=== PATIENT | male | born 1995 | race Caucasian/White ===

== ENCOUNTER 2017-01-07 19:44 | Emergency (ER) | payer MEDICAID ==
[2017-01-07 19:55] VITALS: RESP 18
[2017-01-07] MEDS ORDERED: ACETAMINOPHEN 500 MG TAB PO ONE (19:58)
[2017-01-07] MEDS ORDERED: NS 1,000 ML IV ONE ×2 (20:08)
[2017-01-07] MEDS ORDERED: ONDANSETRON 4 MG/2 ML VIAL IVP ONE (20:08)
--- NOTE | 2017-01-07 20:23 | EDPHY ---
H & P Time Seen by Provider: 01/07/17 20:13 HPI/ROS: CHIEF COMPLAINT: Flu-like symptoms. HISTORY OF PRESENT ILLNESS: The patient is a 21 year, who identifies as a female , presenting with flu-like symptoms for the past 3 days. The patient woke up with chills 3 days ago. She has an ongoing cough. She has been vomiting for the past 2 days and states she feels very weak. The patient additionally notes a headache with associated eye pressure. She did not receive a flu shot this season. She took Robitussin and Equate. She denies chest pain or shortness of breath. REVIEW OF SYSTEMS: A comprehensive 10 point review of systems is otherwise negative aside from elements mentioned in the history of present illness. Past Medical/Surgical History: Currently taking Estrogen. Social History: Cigarette smoker. Patient identifies as a female. Smoking Status: Current some day smoker Physical Exam: General Appearance: Alert, pleasant Eyes: Pupils equal and round, no conjunctival pallor or injection ENT, Mouth: Mucous membranes moist Neck: Normal inspection Respiratory: Lungs are clear to auscultation Cardiovascular: Regular rate and rhythm Gastrointestinal: Abdomen is soft and non-tender Neurological: A&O, nonfocal, normal gait Skin: Warm and dry, no rash Extremities: Nontender, no pedal edema Psychiatric: Mood and affect normal Constitutional: Initial Vital Signs Temperature (C) 39.2 C H 01/07/17 19:52 Heart Rate 133 H 01/07/17 19:52 Respiratory Rate 18 01/07/17 19:52 Blood Pressure 134/76 H 01/07/17 19:52 O2 Sat (%) 98 01/07/17 19:52 O2 Delivery Mode Room Air Allergies/Adverse Reactions: No Known Allergies Allergy (Unverified 01/07/17 19:59) Home Medications: Medication Instructions Recorded Ondansetron Odt [Zofran Odt 4 mg 4 mg PO Q4 PRN #6 tab 01/07/17 (*)] Oseltamivir Phosphate [Tamiflu 75 75 mg PO BID #10 cap 01/07/17 mg (RX)] Medical Decision Making - Diagnostics Imaging: Study: X-ray of the chest was obtained. Results: Negative. I viewed the images myself on the PACS system. ED Course/Re-evaluation: Patient received 1000mg Tylenol PO. Flu swab was sent. IV was established, patient received IV fluids and 4mg Zofran. Chest x-ray is pending. Patient is positive for influenza B. Plan to start the patient on Tamiflu. Chest x-ray is negative. 9:00 p.m.: I discussed findings with the patient. Plan to discharge home. Differential Diagnosis: Differential diagnosis includes pneumonia, pyelonephritis, cholecystitis, influenza, cellulitis, pneumonia, abscess, meningitis. - Data Points Laboratory Results: 01/07/17 20:30 Influenza Typ A,B (DFA) POSITIVE FOR FLU B H (NEGATIVE) Medications Given: Discontinued Medications Acetaminophen (Tylenol) 1,000 mg PO EDNOW ONE Stop: 01/07/17 19:59 Last Admin: 01/07/17 19:58 Dose: 1,000 mg Sodium Chloride (Ns) 1,000 mls @ 0 mls/hr IV ONCE ONE PRN Reason: Wide Open Stop: 01/07/17 20:09 Last Admin: 01/07/17 20:16 Dose: 1,000 mls Sodium Chloride (Ns) 1,000 mls @ 0 mls/hr IV ONCE ONE PRN Reason: Wide Open Stop: 01/07/17 20:09 Last Admin: 01/07/17 20:17 Dose: 1,000 mls Ondansetron HCl (Zofran) 4 mg IVP EDNOW ONE Stop: 01/07/17 20:09 Last Admin: 01/07/17 20:34 Dose: 4 mg Ondansetron HCl (Zofran Odt 4 Mg Prepack#2) 1 btl TAKEHOME EDNOW ONE Stop: 01/07/17 20:58 Last Admin: 01/07/17 21:15 Dose: 1 btl Departure - Departure Disposition: Home, Routine, Self-Care Clinical Impression: Influenza B Condition: Good Instructions: Ondansetron (By mouth), Influenza (ED) Additional Instructions: Drink plenty of fluids. Start Tamiflu and take as directed. Adult Pain & Fever Control: We recommend Acetaminophen (Tylenol) and Ibuprofen (Motrin,Advil) for pain and fever control. When fever is high or pain severe, both drugs can be used at the same time, but at different intervals. Please note the time differences. Your dose is: Acetaminophen 650 mg every 4 to 6 hours Ibuprofen 600 mg every 6-8 hours with food. You have been referred to the on-call primary care physician. If you continue to have symptoms please followup with this physician. Referrals: Abby Doss MD [Medical Doctor] - As per Instructions Stand Alone Forms: School Excuse Prescriptions: Ondansetron Odt [Zofran Odt 4 mg (*)] 4 mg PO Q4 PRN #6 tab PRN Reason: Nausea Oseltamivir Phosphate [Tamiflu 75 mg (RX)] 75 mg PO BID #10 cap Report Scribed for: Allyn Jin Report Scribed by: Dalia Root Date of Report: 01/07/17 Time of Report: 20:23 Physician Review and Approval Statement: 01/07/17 21:01 Portions of this note were transcribed by a medical microbiologist. I personally performed the history, physical exam, and medical decision-making; and confirmed the accuracy of the information in the transcribed note.
[2017-01-07] MEDS ORDERED: ONDANSETRON 4MG PREPACK#2 BTL TAKEHOME ONE (20:57)
[2017-01-07 21:28] VITALS: BP 100/51; PULSE 100; TEMP 100.2; O2SAT 96
== END 2017-01-07 21:27 | disposition home or self-care (01) ==
LOC: EDSEX 19:44 → EEVIPCON 19:44
DX: J10.1 Influenza due to other identified influenza virus with other respiratory manifestations (principal); F17.200 Nicotine dependence, unspecified, uncomplicated
CPT/HCPCS: 96374; J2405

== ENCOUNTER 2017-09-29 12:09 | Emergency (ER) | payer MEDICAID ==
[2017-09-29 12:16] VITALS: RESP 18
[2017-09-29] MEDS ORDERED: IBUPROFEN 600 MG TAB PO ONE (12:16)
[2017-09-29 14:05] VITALS: TEMP 98.8
--- NOTE | 2017-09-29 14:12 | EDPHY ---
HPI/HX/ROS/PE/MDM Narrative: CHIEF COMPLAINT: Fever, flu-like symptoms HISTORY OF PRESENT ILLNESS: This patient is a 22 year old who identifies as female complaining of shortness of breath, back pain, chest pain, nausea, fatigue, and headache onset around 12pm yesterday. Her symptoms have become progressively worse since that time. She endorses productive cough, lightheadedness, and dizziness. She is febrile at triage at 39.2 degrees. She has taken Tylenol and Ibuprofen at home with little relief. Her last dose of acetaminophen at home was around 7:00am. She did not receive a flu shot this year. No palpitations, vomiting, diarrhea, urinary complaints. REVIEW OF SYSTEMS: Aside from elements discussed in the HPI, a comprehensive 10-point review of systems was reviewed and is negative. PAST MEDICAL HISTORY: 1. Transitioning male to female. (Spironolactone, Estrogen) SOCIAL HISTORY: Single. Lives in [place]. Nonsmoker. VITAL SIGNS: Reviewed by me GENERAL: Well-developed, well-nourished, resting comfortably in no respiratory distress. Occasional cough. HEENT: Atraumatic. Eyes: No icterus, no injection. Mouth: slightly dry mucous membranes, mild erythema, no exudates or lesions. Neck: supple with no adenopathy. LUNGS: Clear to auscultation bilaterally, no wheezes, rhonchi or rales. CARDIAC: Regular tachycardia, no rubs, murmurs or gallops. ABDOMEN: Soft, nontender, nondistended, bowel sounds normal. BACK: No CVA tenderness. EXTREMITIES: No trauma. No edema. Range of motion is normal throughout. NEURO: Alert and oriented, grossly nonfocal. SKIN: Warm and diaphoretic, no rash. PSYCHIATRIC: Normal mentation, no agitation. Portions of this note were transcribed by a medical records supervisor. I personally performed a history, physical exam, medical decision making, and confirmed accuracy of information the transcribed note. ED Course: IV placed. Patient given motrin at triage. CXR without pneumonia; c/w bronchitis. Labs largely reassuring. Influenza swab sent; suspect influenza A. Better post fluids. No longer febrile. Tachycardia improved. Patient dc'd with tamiflu. Will call ED for results of influenza swab. MDM: Differential diagnosis for fever in adults was considered including but not limited to pneumonia, bronchitis, urinary tract infection, viral syndrome, and influenza. - Data Points Imaging Results: Imaging Impressions Chest X-Ray 09/29/17 14:12 Impression: Mild perihilar bronchitis, with no focal infiltrate. Imaging: I viewed and interpreted images myself Laboratory Results: Laboratory Results 09/29/17 14:45 09/29/17 14:45 09/29/17 09/29/17 09/29/17 15:48 14:45 14:45 WBC 6.18 10^3/uL 10^3/uL (3.80-9.50) RBC 5.04 10^6/uL 10^6/uL (4.40-6.38) Hgb 14.3 g/dL g/dL (13.7-17.5) Hct 42.7 % % (40.0-51.0) MCV 84.7 fL fL (81.5-99.8) MCH 28.4 pg pg (27.9-34.1) MCHC 33.5 g/dL g/dL (32.4-36.7) RDW 13.7 % % (11.5-15.2) Plt Count 202 10^3/uL 10^3/uL (150-400) MPV 9.4 fL fL (8.7-11.7) Neut % (Auto) 77.7 % H % (39.3-74.2) Lymph % (Auto) 11.5 % L % (15.0-45.0) Catron % (Auto) 9.1 % % (4.5-13.0) Eos % (Auto) 0.3 % L % (0.6-7.6) Baso % (Auto) 0.6 % % (0.3-1.7) Nucleat RBC Rel Count 0.0 % % (0.0-0.2) Absolute Neuts (auto) 4.80 10^3/uL 10^3/uL (1.70-6.50) Absolute Lymphs (auto) 0.71 10^3/uL L 10^3/uL (1.00-3.00) Absolute Monos (auto) 0.56 10^3/uL 10^3/uL (0.30-0.80) Absolute Eos (auto) 0.02 10^3/uL L 10^3/uL (0.03-0.40) Absolute Basos (auto) 0.04 10^3/uL 10^3/uL (0.02-0.10) Absolute Nucleated RBC 0.00 10^3/uL 10^3/uL (0-0.01) Immature Gran % 0.8 % % (0.0-1.1) Immature Gran # 0.05 10^3/uL 10^3/uL (0.00-0.10) Sodium 137 mEq/L mEq/L (134-144) Potassium 3.5 mEq/L mEq/L (3.5-5.2) Chloride 103 mEq/L mEq/L (97-110) Carbon Dioxide 21 mEq/l L mEq/l (22-31) Anion Gap 13 mEq/L mEq/L (8-16) BUN 12 mg/dL mg/dL (7-23) Creatinine 0.9 mg/dL mg/dL (0.7-1.3) Estimated GFR > 60 Glucose 91 mg/dL mg/dL (70-100) Calcium 9.3 mg/dL mg/dL (8.5-10.4) Nasal Influenza A PCR FLU A DETECTED H (NEGATIVE) Nasal Influenza B PCR NEGATIVE FOR FLU B (NEGATIVE) Medications Given: Discontinued Medications Sodium Chloride (Ns) 1,000 mls @ 0 mls/hr IV ONCE ONE; Wide Open PRN Reason: Protocol Stop: 09/29/17 14:26 Last Admin: 09/29/17 14:55 Dose: 1,000 mls Ibuprofen (Motrin) 600 mg PO EDNOW ONE Stop: 09/29/17 12:17 Last Admin: 09/29/17 12:19 Dose: 600 mg Ketorolac Tromethamine (Toradol) 30 mg IVP EDNOW ONE Stop: 09/29/17 14:27 Last Admin: 09/29/17 14:50 Dose: Not Given General Time Seen by Provider: 09/29/17 14:09 Initial Vital Signs: Initial Vital Signs Temperature (C) 39.2 C H 09/29/17 12:13 Heart Rate 118 H 09/29/17 12:13 Respiratory Rate 18 09/29/17 12:13 Blood Pressure 116/82 H 09/29/17 12:13 O2 Sat (%) 96 09/29/17 12:13 O2 Delivery Mode Room Air Allergies/Adverse Reactions: No Known Allergies Allergy (Verified 09/29/17 12:12) Home Medications: Medication Instructions Recorded Estrogens, Conjugated 09/29/17 Oseltamivir Phosphate [Tamiflu 75 75 mg PO BID 5 Days cap 09/29/17 mg (*)] Spironolactone 09/29/17 Departure - Departure Disposition: Home, Routine, Self-Care Clinical Impression: Influenza Condition: Good Instructions: Oseltamivir (By mouth), Fever in Adults (ED), Influenza (ED) Additional Instructions: 1. Take Tylenol or ibuprofen as directed below for pain/fever reduction. 2. Follow up with your primary care provider for further evaluation. 3. Return to the emergency department for uncontrollable fever, worsening chest pain or shortness of breath, uncontrollable vomiting or diarrhea, or other worsening of condition. 4. Stay well hydrated. Adult Pain & Fever Control: We recommend Acetaminophen (Tylenol) and Ibuprofen (Motrin,Advil) for pain and fever control. When fever is high or pain severe, both drugs can be used at the same time, but at different intervals. Please note the time differences. Your dose is: Acetaminophen 650mg every 4 to 6 hours Ibuprofen 400mg every 6-8 hours with food Note: do not take Acetaminophen with Hydrocodone (Vicodin, Lortab) or Oxycodone (Percocet). These medications also contain Acetaminophen. No more than 3000mg of Acetaminophen should be taken in 24 hours (for an adult). 5. Take tamiflu as directedd. Referrals: Vibha Del Cid MD [Medical Doctor] - As per Instructions Stand Alone Forms: School Excuse Prescriptions: Oseltamivir Phosphate [Tamiflu 75 mg (*)] 75 mg PO BID 5 Days cap Report Scribed for: Gwen Rivas Report Scribed by: Tuyet Louis Date of Report: 09/29/17 Time of Report: 14:12
[2017-09-29] MEDS ORDERED: NS 1,000 ML IV ONE (14:25)
[2017-09-29] MEDS ORDERED: KETOROLAC 30 MG/1 ML SDV IVP ONE (14:26)
[2017-09-29 15:03] LABS: % IMMATURE GRANULYOCYTES 0.8 % (0.0-1.1); ABSOLUTE IMMATURE GRANULOCYTES 0.05 10^3/uL (0.00-0.10); ADD DIFF? NO; ADD MORPH? NO; ADD SCAN? NO; ATYPICAL LYMPHOCYTE FLAG 0 (0-99); FRAGMENT RBC FLAG 0 (0-99); HEMATOCRIT 42.7 % (40.0-51.0); HEMOGLOBIN 14.3 g/dL (13.7-17.5); LEFT SHIFT FLG 0 (0-99); LIPEMIA HEMOLYSIS FLAG 80 (0-99); MEAN CELL HEMOGLOBIN 28.4 pg (27.9-34.1); MEAN CELL HEMOGLOBIN CONCENTR. 33.5 g/dL (32.4-36.7); MEAN CELL VOLUME 84.7 fL (81.5-99.8); MEAN PLATELET VOLUME 9.4 fL (8.7-11.7); PLATELET CLUMPS FLAG 40 (0-99); PLATELET COUNT 202 10^3/uL (150-400); RED BLOOD CELL COUNT 5.04 10^6/uL (4.40-6.38); RED CELL DISTRIBUTION WIDTH 13.7 % (11.5-15.2)
[2017-09-29 15:07] LABS: ANION GAP 13 mEq/L (8-16); CALCIUM 9.3 mg/dL (8.5-10.4); CARBON DIOXIDE 21 mEq/l (22-31); CHLORIDE 103 mEq/L (97-110); CREATININE 0.9 mg/dL (0.7-1.3); GLOMERULAR FILTRATION RATE > 60; GLUCOSE 91 mg/dL (70-100); POTASSIUM 3.5 mEq/L (3.5-5.2); SODIUM 137 mEq/L (134-144)
[2017-09-29 15:13] VITALS: O2SAT 96
[2017-09-29 15:47] VITALS: BP 114/79; PULSE 93
[2017-09-29 16:43] LABS: PRINT OR CALL CRITICALS TECH CALL
== END 2017-09-29 15:55 | disposition home or self-care (01) ==
DX: J11.1 Influenza due to unidentified influenza virus with other respiratory manifestations (principal); E86.9 Volume depletion, unspecified